=== PATIENT | female | born 2000 | race Caucasian/White ===

== ENCOUNTER 2022-07-24 18:48 | Emergency (ER) | payer BC ==
[~2022-07-24] VITALS: Ht 170.2 cm; Wt 100.0 kg
[2022-07-24 18:55] VITALS: TEMP 98.3
[2022-07-24] MEDS ORDERED: NORCO 325 MG-51 TAB PO (20:31)
[2022-07-24 20:50] VITALS: BP 122/76; PULSE 79
== END 2022-07-24 20:50 | disposition home or self-care (01) ==
LOC: COL.ER 18:48
DX: S92.322A Displaced fracture of second metatarsal bone, left foot, initial encounter for closed fracture (principal); X50.1XXA Overexertion from prolonged static or awkward postures, initial encounter; Y93.41 Activity, dancing
CPT/HCPCS: 31865; L4386